=== PATIENT | female | born 1995 | race Caucasian/White ===

== ENCOUNTER 2017-09-15 13:20 | Emergency (ER) | payer SELFPAY | END 2017-09-15 15:00 | disposition left against medical advice (07) | LOC: ER 13:20 | DX: M25.579 Pain in unspecified ankle and joints of unspecified foot (principal) ==

== ENCOUNTER 2017-11-17 14:26 | Emergency (ER) | payer MEDICAID ==
[2017-11-17] MEDS ORDERED: Triple Antibiotic 0.94 gm Pkt TP ONE (15:50)
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
== END 2017-11-17 16:25 | disposition home or self-care (01) ==
LOC: ER 14:26
DX: S90.512A Abrasion, left ankle, initial encounter (principal); V19.9XXA Pedal cyclist (driver) (passenger) injured in unspecified traffic accident, initial encounter; Y93.89 Activity, other specified; Y92.410 Unspecified street and highway as the place of occurrence of the external cause; Y99.8 Other external cause status
CPT/HCPCS: Z7502

== ENCOUNTER 2018-03-27 10:40 | Emergency (ER) | payer MEDICAID ==
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
[2018-03-27] MEDS ORDERED: Sodium Chloride 0.9% 1,000 ML IV ONE (11:44)
== END 2018-03-27 12:00 | disposition home or self-care (01) ==
LOC: ER 10:40
DX: S70.312A Abrasion, left thigh, initial encounter (principal); S40.212A Abrasion of left shoulder, initial encounter; S70.212A Abrasion, left hip, initial encounter; S80.812A Abrasion, left lower leg, initial encounter; S70.311A Abrasion, right thigh, initial encounter; S20.312A Abrasion of left front wall of thorax, initial encounter; W19.XXXA Unspecified fall, initial encounter; Y93.89 Activity, other specified; Y92.89 Other specified places as the place of occurrence of the external cause; Y99.8 Other external cause status
CPT/HCPCS: Z7502